=== PATIENT | female | born 1985 | race African-American/Black ===

== ENCOUNTER 2019-09-11 15:29 | Emergency (ER) | payer OTHER ==
[~2019-09-11] VITALS: Ht 162.6 cm; Wt 81.7 kg
[2019-09-11 15:30] VITALS: BP 133/92
[2019-09-11] MEDS ORDERED: ZANAFLEX4 M1 PO (16:33)
== END 2019-09-11 16:49 | disposition home or self-care (01) ==
LOC: ER 15:29
DX: S16.1XXA Strain of muscle, fascia and tendon at neck level, initial encounter (principal); R51 Headache; M25.511 Pain in right shoulder; M25.512 Pain in left shoulder; Z88.0 Allergy status to penicillin; V49.9XXA Car occupant (driver) (passenger) injured in unspecified traffic accident, initial encounter; Y93.89 Activity, other specified; Y92.89 Other specified places as the place of occurrence of the external cause; Y99.8 Other external cause status